=== PATIENT | male | born 1960 | race Caucasian/White ===

== ENCOUNTER 2020-07-25 18:52 | Emergency (ER) | payer OTHER, SELFPAY ==
--- NOTE | ~2020-07-25 | XR_ITS ---
XR chest 2V 07/25/2020 19:22 Indication: Cough and congestion Procedure: 2 view chest Comparison: Comparison to multiple prior studies sequentially, with oldest reviewed study dated 01/19. Findings: There is chronic interstitial fibrosis of the lung bases with honeycombing. The lungs are h yperinflated which is consistent with, but not diagnostic of chronic obstructive pulmonary disease. N o acute focal pneumonia, edema or effusion. Heart size normal. Impression: 1: No acute cardiopulmonary disease. Reviewed, dictated and finalized at location A. IVING ROOM CLERK Impression: 1: No acute cardiopulmonary disease.
[2020-07-25 19:06] VITALS: BP 119/80; PULSE 87; RESP 20; TEMP 37.1; O2SAT 99
--- NOTE | 2020-07-25 19:15 | ED.URI ---
HPI - URI/Sore Throat General Chief Complaint: Upper Respiratory Infection Stated Complaint: chest congestion/cough Time Seen by Provider: 07/25/20 19:05 Source: patient and RN notes reviewed Mode of arrival: ambulatory Limitations: no limitations History of Present Illness HPI Narrative: Patient presents today complaining of cough x1 month with white/yellow sputum, sinus drainage, shortness of breath with exertion. He is also complaining of a 6-week history of frontal head pressure and fatigue. He is a very poor historian and states he has had nasal congestion for 6 to 7 years. History of COPD, but keeps losing his inhaler. He has been taking Mucinex, but states it is not helping with his symptoms. MD elicited complaint: cough Related Data Allergies Allergy/AdvReac Type Severity Reaction Status Date / Time No Known Allergies Allergy Verified 07/25/20 19:05 Review of Systems Review of Systems: Narrative: CONSTITUTIONAL: Denies body aches, fever, chills, or sweats.+ Fatigue EYES: Denies visual changes, redness, or discharge. ENT: Denies rhinorrhea, sore throat, or otalgia. + Postnasal drip, frontal head pressure, chronic congestion CARDIOVASCULAR: Denies chest pain, palpitations, or edema. RESPIRATORY: + Cough, shortness of breath with exertion GASTROINTESTINAL: Denies abdominal pain, nausea, vomiting, or diarrhea. GENITOURINARY: Denies dysuria or hematuria. SKIN: Denies rash, itching, or wounds. MUSCULOSKELETAL: Denies back pain, joint pain, or myalgia. NEUROLOGIC: Denies headache, numbness, tingling, or weakness. PSYCH: Denies depression or anxiety. [facility] Past Medical History Medical History (Updated 07/25/20 @ 19:38 by Bridgette Vences, [employer], ) COPD (chronic obstructive pulmonary disease) History of myocardial infarction Surgical History Surgical History (Updated 07/25/20 @ 19:19 by Bridgette Vences, [facility], ) History of appendectomy Comments At time of signature, I have reviewed and agree with nursing past medical, surgical, social and family history unless otherwise noted. Please see nursing chart for further information. There is no relevant family history pertinent to the presenting complaint Exam Narrative: Exam Narrative: GENERAL: Chronically ill-appearing, well-nourished, and in no acute distress. HEAD: Normocephalic, atraumatic. EYES: EOMI. No redness or drainage. Conjunctivae normal. ENT: Mucous membranes pink and moist. Gross dental decay. Nares clear. No rhinorrhea. TMs normal bilaterally. Copious white postnasal drainage. Throat normal. Uvula midline. NECK: Normal AROM. Supple. No lymphadenopathy. CHEST: No respiratory distress. Significant crackles in the bilateral lower lobes. HEART: Regular rate and rhythm. No murmur appreciated. Normal peripheral pulses. EXTREMITIES: Normal range of motion. No edema. SKIN: Warm, dry, no rash. Capillary refill normal. Normal skin turgor. NEURO: No focal deficits. Alert and oriented x3. Gait steady. PSYCH: Normal affect. No signs of depression or anxiety. Course Vital Signs Vital signs: Vital Signs Temperature 98.8 F 07/25/20 19:06 Pulse Rate 87 07/25/20 19:06 Respiratory Rate 20 07/25/20 19:06 Blood Pressure 119/80 07/25/20 19:06 Pulse Oximetry 99 07/25/20 19:06 Temperature 98.8 F 07/25/20 19:06 Pulse Rate 87 07/25/20 19:06 Respiratory Rate 20 07/25/20 19:06 Blood Pressure 119/80 07/25/20 19:06 Pulse Oximetry 99 07/25/20 19:06 Reviewed MDM - URI/Sore Throat Differential Diagnosis Differential diagnosis: Likely upper respiratory infection, sinusitis, viral infection, bronchitis and other (COPD exacerbation, pneumonia) Critical Care Time Critical Care Time Critical Care Time: No Discharge Plan Discharge Clinical Impression: COPD exacerbation Sinusitis Qualifiers: Sinusitis location: frontal Chronicity: acute Recurrence: not specified as recurrent Qualified Code(s): J01.10 - Acute frontal s
== END 2020-07-25 19:46 | disposition home or self-care (01) ==
PROVIDERS: Emergency Provider Nurse Practitioner; PCP Physician Assistant
DX: J44.1 Chronic obstructive pulmonary disease with (acute) exacerbation (principal); J01.10 Acute frontal sinusitis, unspecified; I25.2 Old myocardial infarction
CPT/HCPCS: 71046; 99203; G0463